=== PATIENT | male | born 1990 | race Caucasian/White ===

== ENCOUNTER 2019-10-15 17:42 | Emergency (ER) | payer OTHER ==
--- NOTE | 2019-10-15 17:50 | PDOC ---
History of Present Illness - General Chief Complaint: Injury Stated Complaint: RIGHT WRIST INJURY Time Seen by Provider: 10/15/19 17:45 History Source: Patient Exam Limitations: No Limitations - History of Present Illness Initial Comments: 10/15/19 17:47 29 y/o male snowboarding today injured rigth wrist. Has not taken anything but applying ice. No LOC or pain any place else. Denies pain to hand, forearm, or elbow. Occurred: reports: this afternoon Severity: reports: mild Past History - Past Medical History Allergies/Adverse Reactions: Allergies Allergy/AdvReac Type Severity Reaction Status Date / Time No Known Allergies Allergy Verified 10/15/19 17:43 Home Medications: Ambulatory Orders Insulin Aspart [Novolog] 0 unit SQ ASDIR 10/15/19 Review of Systems - Review of Systems Able to Perform ROS?: Yes Is the patient limited Maltese proficient: No Constitutional: No: Chills, Fever HEENTM: No: Mouth Swelling Respiratory: No: Shortness of Breath ABD/GI: No: Vomiting Musculoskeletal: Yes: Joint Pain. No: Back Pain Integumentary: No: Bruising Neurological: No: Numbness All Other Systems: Reviewed and Negative *Physical Exam - Physical Exam General Appearance: Yes: Nourished, Appropriately Dressed. No: Apparent Distress HEENT: positive: EOMI, CHARANJIT, Normal ENT Inspection, Normal Voice, Symmetrical Neck: positive: Trachea midline, Normal Thyroid, Supple. negative: Tender, Rigid Respiratory/Chest: positive: Lungs Clear, Normal Breath Sounds. negative: Chest Tender, Respiratory Distress Cardiovascular: positive: Regular Rhythm, Regular Rate, S1, S2. negative: Edema , JVD, Murmur Vascular Pulses: Femoral (R): 4+, Femoral (L): 4+, Carotid (R): 4+, Carotid (L) : 4+, Dorsalis-Pedis (R): 4+, Doralis-Pedis (L): 4+ Gastrointestinal/Abdominal: positive: Normal Bowel Sounds, Flat, Soft. negative : Tender Lymphatic: negative: Adenopathy, Tenderness, Other Musculoskeletal: positive: Normal Inspection. negative: CVA Tenderness Extremity: positive: Normal Capillary Refill, Normal Inspection, Normal Range of Motion, Tender (tenderness to lateral and medial right wrist with full ROM, no swelling, erythmea or ecchymosis noted) Integumentary: positive: Normal Color, Dry, Warm. negative: Cyanotic, Erythema Neurologic: positive: buffet waiter/waitress II-XII NML intact, Fully Oriented, Alert, Normal Mood/ Affect, Normal Response, Motor Strength 12/18 ED Treatment Course - RADIOLOGY Radiology Studies Ordered: Category Date Time Status WRIST- RIGHT [RAD] Stat Radiology 10/15/19 17:46 Ordered ED Progress Note - Progress Note Progress Note: 10/15/19 17:49 Right wrist pain r/o fracture 10/15/19 18:13 X-ray right wrist: No fracture seen Will place into wrist splint Ice, Motrin, rest If worsen return to ER or follow up with Orthopedics Pt is in agreement with plan Discharge - Discharge Information Problems reviewed: Yes Clinical Impression/Diagnosis: Strain of wrist, right Qualifiers: Encounter type: initial encounter Qualified Code(s): S66.911A - Strain of unspecified muscle, fascia and tendon at wrist and hand level, right hand, initial encounter Condition: Stable Disposition: HOME - Admission No - Follow up/Referral Referrals: Werner Colon [Primary Care Provider] - Arun Sargent MD [Staff Physician] - - Patient Discharge Instructions Patient Printed Discharge Instructions: DI for Wrist Strain Additional Instructions: Ice, Motrin, rest Splint Follow up with Orthopedics if worsen - Post Discharge Activity
[2019-10-15 17:52] VITALS: BP 137/94; PULSE 98; TEMP 98.3; BMI 32.5
[2019-10-15] MEDS ORDERED: IBUPROFEN 600 MG TABLET (FP) PO ONE ×2 (18:16→18:19)
== END 2019-10-15 18:25 | disposition home or self-care (01) ==
LOC: FER 17:42
PROC: 2W3CX1Z Immobilization of Right Lower Arm using Splint (ICD-10-PCS; principal; 2019-10-15)
DX: S66.911A Strain of unspecified muscle, fascia and tendon at wrist and hand level, right hand, initial encounter (principal); X58.XXXA Exposure to other specified factors, initial encounter; Y93.23 Activity, snow (alpine) (downhill) skiing, snowboarding, sledding, tobogganing and snow tubing; Y92.89 Other specified places as the place of occurrence of the external cause
CPT/HCPCS: 73110-TC-RT-FY; 99283-25